=== PATIENT | male | born 1965 | race Caucasian/White ===

== ENCOUNTER → 2016-12-31 | Outpatient (CLI) | payer BC | LOC: BMCIMAGING 13:01 | PROVIDERS: ATTEND Internal Medicine | DX: R05 Cough (principal); R50.9 Fever, unspecified; J98.4 Other disorders of lung ==

== ENCOUNTER 2017-08-02 19:56 | Emergency (ER) | payer BC ==
[2017-08-02 20:06] VITALS: TEMP 98.6
--- NOTE | 2017-08-02 20:07 | CPEKG ---
Heart Rate: 67 RR Interval: 896 P-R Interval: 140 QRSD Interval: 84 QT Interval: 364 QTC Interval: 385 P [place]: 26 QRS [place]: 5 T Wave [place]: 14 EKG Severity - NORMAL ECG - EKG Impression: SINUS RHYTHM Electronically Signed By: Jazz Buchanan 02-Aug-2017 22:17:56
[2017-08-02] MEDS ORDERED: NS 500 ML IV ONE (20:08)
--- NOTE | 2017-08-02 20:16 | EDPHY ---
H & P Time Seen by Provider: 08/02/17 20:07 HPI/ROS: CHIEF COMPLAINT: Chest pain HISTORY OF PRESENT ILLNESS: This patient is a healthy 52 y/o male arriving at the request of his primary care ski guide, Dr. Connolly, for evaluation of chest pain. 4 days ago, while travelling in [place], the patient woke diaphoretic with left-sided and substernal chest pain. He visited the emergency department there and had a negative workup including EKG, chest x-ray, and labs. He returned home, and his chest pain has persisted. The chest pain is a dull persistent ache in the left side of his chest. Associated with intermittent fever and unusual fatigue. Yesterday, the emergency department in [place] called to notify him of an abnormal CXR finding and recommended followup CT. He denies cough or cold symptoms including rhinorrhea, congestion, or sore throat. No SOB, pain or swelling in his legs. Patient's family history positive for CAD, father had his first NM at age 49. His last stress test was 3 years ago. The patient takes a statin for hyperlipidemia. REVIEW OF SYSTEMS: A 10 point review of systems was performed and is negative with the exception of the elements mentioned in the history of present illness. Past Medical/Surgical History: 1. Hyperlipidemia 2. Bronchitis and pneumonia (2017) Social History: . at bedside. Nonsmoker. Moderate alcohol use. PCP Dr. Connolly. Smoking Status: Never smoked Physical Exam: General Appearance: Alert, pleasant Eyes: Pupils equal and round, no conjunctival pallor or injection ENT, Mouth: Mucous membranes moist Neck: Normal inspection Respiratory: Lungs are clear to auscultation Cardiovascular: Regular rate and rhythm Gastrointestinal: Abdomen is soft and non-tender Neurological: A&O, nonfocal, normal gait Skin: Warm and dry, no rash Extremities: Nontender, no pedal edema Psychiatric: Mood and affect normal Constitutional: Initial Vital Signs Temperature (C) 37 C 08/02/17 19:59 Heart Rate 83 08/02/17 19:59 Respiratory Rate 16 08/02/17 19:59 Blood Pressure 111/73 08/02/17 19:59 O2 Sat (%) 97 08/02/17 19:59 O2 Delivery Mode Room Air Allergies/Adverse Reactions: No Known Allergies Allergy (Unverified 04/01/10 19:56) Home Medications: Medication Instructions Recorded SIMVASTATIN 08/02/17 Medical Decision Making - Diagnostics EKG Interpretation: EKG interpreted by me reveals normal sinus rhythm, rate 67, no ST/T changes. Interpretation: normal EKG Imaging Results: CTA chest per radiologist: multiple jim lesions, concerning for multiple myeloma vs mets. No PE or pneumonia. Imaging: Discussed imaging studies w/ electric appliance installer Radiologist ED Course/Re-evaluation: 52 y/o male presents with five day history of chest pain. IV established. EKG reveals no evidence of ischemia. Doubt ACS, given atypical and prolong sx. Plan for CTA chest. D-dimer and troponin negative. 21:[address] Alvarez, radiologist. CT shows multiple osseous lesions suspicious for metastasis or myeloma. No abnormal lung findings noted. 21:[address] Connolly. Discussed CT results. He will follow up with the patient on Saturday. 21:40 Discussed results with patient. Left anterior chest pain correlates to 5th rib lesion. No evidence for alternative etiology for chest pain. Plan to d/ c home in good condition. F/u and return precautions discussed. He has been provided with a copy of the CTA report. Differential Diagnosis: includes though not limited to ACS, PE, PTX, pneumonia - Data Points Laboratory Results: Laboratory Results 08/02/17 20:10 08/02/17 20:10 Medications Given: Discontinued Medications Sodium Chloride (Ns) 500 mls @ 0 mls/hr IV EDNOW ONE; Wide Open PRN Reason: Protocol Stop: 08/02/17 20:09 Last Admin: 08/02/17 20:26 Dose: 500 mls Departure - Departure Disposition: Home, Routine, Self-Care Clinical Impression: Lytic bone lesions on xray Chest pain Qualifiers: Chest pain type: other chest pain Qualified Code(s): R07.89 - Other chest pain ; R07.8 - Other chest pain Condition: Good Instructions: Chest Pain (ED) Additional Instructions: The CT scan shows jim lesions of the ribs. This is causing your discomfort. You will need to follow-up with Dr. Connolly to figure out the etiology of these lesions. I spoke with Dr. Connolly this evening, and he will follow up with you Saturday. Your lungs look normal on the CT scan. Referrals: Jose G Connolly MD [Primary Care Provider] - As per Instructions (Call on Saturday to make an appointment.) Report Scribed for: Jazz Buchanan Report Scribed by: Heather Leslie Date of Report: 08/02/17 Time of Report: 20:17 Physician Review and Approval Statement: 08/02/17 20:17 Portions of this note were transcribed by a expert medical writer. I personally performed a history, physical exam, medical decision making, and confirmed accuracy of information the transcribed note.
[2017-08-02] MEDS ORDERED: IOPAMIDOL (ISOVUE 370) 100 ML BTL IV ONE (20:19)
[2017-08-02 20:27] VITALS: PULSE 78
[2017-08-02 20:27] LABS: ANION GAP 13 mEq/L (8-16); CALCIUM 9.7 mg/dL (8.5-10.4); CARBON DIOXIDE 20 mEq/l (22-31); CHLORIDE 103 mEq/L (97-110); CREATININE 1.2 mg/dL (0.7-1.3); GLOMERULAR FILTRATION RATE > 60; GLUCOSE 110 mg/dL (70-100); POTASSIUM 4.1 mEq/L (3.5-5.2); SODIUM 136 mEq/L (134-144)
[2017-08-02 20:38] LABS: TROPONIN I < 0.012 ng/mL (0.000-0.034)
[2017-08-02 20:45] LABS: ADD MORPH? NO; ADD SCAN? YES; FRAGMENT RBC FLAG 0 (0-99); HEMOGLOBIN 14.2 g/dL (13.7-17.5); LEFT SHIFT FLG 0 (0-99); LIPEMIA HEMOLYSIS FLAG 90 (0-99); MEAN CELL HEMOGLOBIN 29.4 pg (27.9-34.1); MEAN CELL HEMOGLOBIN CONCENTR. 33.8 g/dL (32.4-36.7); MEAN PLATELET VOLUME 9.6 fL (8.7-11.7); PLATELET CLUMPS FLAG 0 (0-99); PLATELET COUNT 250 10^3/uL (150-400); RED BLOOD CELL COUNT 4.83 10^6/uL (4.40-6.38); RED CELL DISTRIBUTION WIDTH 13.2 % (11.5-15.2)
[2017-08-02 20:46] LABS: ATYPICAL LYMPHOCYTE FLAG 290 (0-99)
[2017-08-02 21:01] LABS: ADD DIFF? YES; SCAN POSITIVE
[2017-08-02 21:06] LABS: PLATELET ESTIMATE ADEQUATE (ADEQ)
[2017-08-02 21:48] VITALS: BP 119/77; RESP 16; O2SAT 96
== END 2017-08-02 21:47 | disposition home or self-care (01) ==
DX: R07.89 Other chest pain (principal); M89.9 Disorder of bone, unspecified; E86.9 Volume depletion, unspecified
CPT/HCPCS: 82947-QW; Q9967

== ENCOUNTER 2017-10-04 22:35 | Inpatient (IN) | payer BC ==
[2017-10-04] MEDS ORDERED: ALBUTEROL 3 ML DEYVIAL IH ONE (23:12)
--- NOTE | 2017-10-04 23:12 | EDPHY ---
H & P Time Seen by Provider: 10/04/17 22:47 HPI/ROS: CHIEF COMPLAINT: Shortness of breath, weakness HISTORY OF PRESENT ILLNESS: 52-year-old male presents to the emergency department by private vehicle with his . Patient has a history of multiple myeloma. He is currently undergoing chemotherapy. He was recently traveling in [place] and over last 24 hr or so he has had weakness, body aches, feeling feverish and fatigued. He is feeling increasingly short of breath. He went to [facility] today and tested positive for influenza B. he started on Tamiflu tonight. When he arrived home, the patient noticed that he was wheezing and was having a hard time breathing. He was advised to come to the emergency department for evaluation. No flu shot. He typically does not require supplemental oxygen. REVIEW OF SYSTEMS: Constitutional: Fevers, chills Eyes: No double or blurry vision. ENT: No sore throat. Respiratory: Cough, shortness of breath Cardiac: No chest pain. Gastrointestinal: No abdominal pain, vomiting or diarrhea. Genitourinary: No dysuria. Musculoskeletal: No neck or back pain. Skin: No rashes. Neurological: headache. Past Medical/Surgical History: Multiple myeloma currently undergoing chemotherapy Social History: Smoking Status: Never smoked Physical Exam: General Appearance: Alert, no distress. Temperature 38.5 degrees orally, heart rate 90, respirations 16, blood pressure 129/74, initially 89% on room air. With 2 L he is 94%. Eyes: Pupils equal and round. Extraocular motions are all intact. ENT: Mouth: Mucous membranes moist. Respiratory: Expiratory wheezing. No rales. No respiratory distress. Cardiovascular: Regular rate and rhythm. Gastrointestinal: Abdomen is soft and nontender, no masses, no rebound or guarding, bowel sounds normal. Neurological: Alert and oriented x 3, cranial nerves II through XII grossly intact Skin: Warm and dry, no rashes. Musculoskeletal: Nontender to palpate along the cervical, thoracic or lumbar spine. Neck is supple. Extremities: Full range of motion and no peripheral edema. Psychiatric: Patient is oriented X 3, there is no agitation. Constitutional: Initial Vital Signs Temperature (C) 37.0 C 10/04/17 22:44 Heart Rate 90 10/04/17 22:44 Respiratory Rate 16 10/04/17 22:44 Blood Pressure 129/74 H 10/04/17 22:44 O2 Sat (%) 94 10/04/17 22:44 O2 Delivery Mode Room Air O2 (L/minute) 2 Allergies/Adverse Reactions: No Known Allergies Allergy (Unverified 10/04/17 22:43) Home Medications: Medication Instructions Recorded Acyclovir [Zovirax 400 mg (*)] 400 mg PO DAILY 10/04/17 Bortezomib [Velcade Sc Conc] 0 mg SC FR 10/04/17 Daratumumab [Darzalex] 500 mg IV TU 10/04/17 Dexamethasone [Decadron 4 MG (*)] 20 mg PO WE 10/04/17 Ergocalciferol (Vitamin D2) 50,000 unit PO TU 10/04/17 [Vitamin D2] LORazepam [Ativan (*)] 1 mg PO HS PRN 10/04/17 Lenalidomide [Revlimid] 25 mg PO DAILY 10/04/17 Oseltamivir Phosphate [Tamiflu 75 75 mg PO BID 10/04/17 mg (*)] Zolpidem Tartrate [Ambien 5MG (*)] 10 mg PO HS PRN 10/04/17 Aspirin [Aspirin 81mg (*)] 81 mg PO DAILY 10/05/17 Montelukast Sodium [Singulair 10 10 mg PO 10/05/17 mg (*)] Ondansetron [Ondansetron Odt] 4 mg PO BID PRN 10/05/17 Sulfamethoxazole/Trimethoprim 1 tab PO DAILY 10/05/17 [Sulfamethoxazole-Tmp Ss Tablet] Medical Decision Making - Diagnostics Imaging: Discussed imaging studies w/ rn outpatient surgery Radiologist, I viewed and interpreted images myself ED Course/Re-evaluation: 52-year-old male with a history of multiple myeloma presents with history of positive influenza B who already took a dose of Tamiflu this evening presents with shortness of breath and wheezing. Patient was given albuterol nebulizer x2. He was feeling a bit better. Chest x-ray revealed room likely right lower lobe pneumonia. This is likely community-acquired pneumonia. He will be started on IV Zithromax and IV ceftriaxone. The case was discussed with Dr. Suhas Argueta , secondary supervising physician, who did not directly evaluate the patient but agrees with treatment plan. Differential Diagnosis: Including but not limited to bronchitis, pneumonia, sepsis, influenza, viral upper respiratory infection - Data Points Laboratory Results: Laboratory Results 10/04/17 23:30 10/04/17 23:30 Medications Given: Acetaminophen (Tylenol) 650 mg PO Q4HRS PRN PRN Reason: Pain, Mild/Fever, Can Take PO Stop: 04/03/18 00:21 Last Admin: 10/05/17 02:01 Dose: 650 mg Acyclovir (Acyclovir) 400 mg PO DAILY DESTINY Stop: 11/04/17 14:14 Last Admin: 10/05/17 15:17 Dose: 400 mg Aspirin (Aspirin) 81 mg PO DAILY DESTINY Stop: 04/03/18 14:14 Last Admin: 10/05/17 15:17 Dose: 81 mg Enoxaparin Sodium (Lovenox) 40 mg SC DAILY DESTINY Stop: 04/03/18 08:59 Last Admin: 10/05/17 10:01 Dose: 40 mg Sodium Chloride (Ns) 1,000 mls @ 100 mls/hr IV CONT DESTINY Stop: 04/03/18 00:29 Last Admin: 10/05/17 12:30 Dose: 1,000 mls Miscellaneous Medication (Lenalidomide [Revlimid]) 25 mg PO DAILY DESTINY Stop: 04/03/18 14:14 Last Admin: 10/05/17 15:45 Dose: 25 mg Oseltamivir Phosphate (Tamiflu) 75 mg PO BID DESTINY Stop: 11/04/17 14:14 Last Admin: 10/05/17 15:44 Dose: 75 mg Trimethoprim/Sulfamethoxazole (Sulfamethoxazole-Tmp Ss Tablet) 1 ea PO DAILY DESTINY PRN Reason: Protocol Stop: 11/04/17 14:14 Last Admin: 10/05/17 15:44 Dose: 1 ea Discontinued Medications Albuterol (Proventil Neb) 3 ml IH EDNOW ONE Stop: 10/04/17 23:13 Last Admin: 10/04/17 23:27 Dose: 3 ml Albuterol (Proventil Neb) 3 ml IH EDNOW ONE Stop: 10/05/17 00:01 Last Admin: 10/05/17 00:01 Dose: 3 ml Azithromycin 500 mg/ Dextrose 255 mls @ 255 mls/hr IV EDNOW ONE PRN Reason: Protocol Stop: 10/05/17 00:55 Last Admin: 10/05/17 01:44 Dose: Not Given Ceftriaxone Sodium 1 gm/ (Sterile Water) 10 mls @ 150 mls/hr IV EDNOW ONE PRN Reason: Protocol Stop: 10/04/17 23:59 Last Admin: 10/05/17 03:25 Dose: Not Given Azithromycin 500 mg/ Sodium (Chloride) 255 mls @ 255 mls/hr IV EDNOW ONE PRN Reason: Protocol Stop: 10/05/17 02:14 Last Admin: 10/05/17 01:16 Dose: 255 mls Ceftriaxone Sodium/Dextrose (Rocephin 1 Gm (Premix)) 50 mls @ 750 mls/hr IV EDNOW DESTINY PRN Reason: Protocol Stop: 11/04/17 01:14 Last Admin: 10/05/17 01:16 Dose: 50 mls Departure - Departure Disposition: [facility] Inpatient Acute Clinical Impression: Influenza Dyspnea Qualifiers: Dyspnea type: unspecified Qualified Code(s): R06.00 - Dyspnea, unspecified Pneumonia Qualifiers: Pneumonia type: due to unspecified organism Laterality: right Lung location: lower lobe of lung Qualified Code(s): J18.1 - Lobar pneumonia, unspecified organism Condition: Fair
[2017-10-04 23:35] LABS: PLATELET COUNT 142 10^3/uL (150-400)
[2017-10-04] MEDS ORDERED: cefTRIAXone 1 GM in STERILE WATER INJ 10 ML IV ONE (23:56)
[2017-10-04] MEDS ORDERED: AZITHROMYCIN IV 500 MG in D5W 250 ML IV ONE (23:56)
[2017-10-04] MEDS ORDERED: ALBUTEROL 3 ML DEYVIAL ONE (23:57)
[2017-10-05] MEDS ORDERED: ALBUTEROL 3 ML DEYVIAL IH ONE
[2017-10-05] MEDS ORDERED: HYDROCODONE/APAP 5/325 TAB PO PRN (00:22)
[2017-10-05] MEDS ORDERED: ALBUTEROL 3 ML DEYVIAL IH PRN (00:22)
[2017-10-05] MEDS ORDERED: ONDANSETRON 4 MG/2 ML VIAL IVP PRN (00:22)
[2017-10-05] MEDS ORDERED: AZITHROMYCIN IV 500 MG in NS 250 ML IV ONE (01:15)
[2017-10-05] MEDS: NS 1,000 ML IV SCH ×3 (02:01→22:00)
[2017-10-05] MEDS: ACETAMINOPHEN 325 MG TAB PO PRN ×2 (02:01→21:56)
--- NOTE | 2017-10-05 02:53 | GHP ---
[f rep st] HISTORY AND PHYSICAL DATE OF ADMISSION: 10/05/2017 SOURCE: Patient able to provide most of the history. He is a bit fatigued. His is at bedside and supplements history. Case discussed with ED provider as well. EMR reviewed. CHIEF COMPLAINT: Shortness of breath. HISTORY OF PRESENT ILLNESS: This is a very pleasant 52-year-old gentleman with past medical history significant for recently diagnosed multiple myeloma in July, started on Velcade and Revlimid, and also undergoing experimental chemotherapy at [facility], who presents to the emergency department today with complaints of worsening dyspnea and wheezing. The patient is undergoing a sec ond round of chemotherapy. Yesterday, he did receive his Velcade and experimental chemotherapy dosin g. Additionally, day prior, patient began to feel increasingly fatigued with diffuse muscle aches, s ubjective fever, generalized weakness, and sore throat. Patient also had a cough. After his infusio n, he was evaluated at [facility] and diagnosed with the flu. The patient has had recent travel to [place] for work and returned just a few days ago. Patient did not receive his flu vaccine this season. He was given Tamiflu and took a single dose. However, whe n patient returned home, he went to lay down, and his observed that he was having significantly increased work of breathing and audible wheezing, and so the patient presented to [facility] for further alexey luation. In the emergency department, patient was noted to be hypoxic into the high 80s on room air. He also had a fever of 38.5. The patient was given nebulizer treatment with improvement in his symptoms. Af ter discussion, patient acknowledged that he does have a history of childhood asthma, but had not had any issues since his youth. He does not smoke. REVIEW OF SYSTEMS: GENERAL: Positive for fevers, chills, sweats. ENT: Positive for rhinorrhea, so re throat. EYES: No acute change in vision or ocular pain. CV: No chest pain, palpitations. RESP IRATORY: Cough (nonproductive), dyspnea, and wheezing as noted above per HPI. GI: No nausea, vomit ing, diarrhea. : No dysuria or hematuria. MUSCULOSKELETAL: Diffuse muscle aching. No specific joint pains. NEUROLOGIC: Headache and history of neuropathy with his chemotherapy regimen. Remaind er of review of systems negative except as noted above. ALLERGIES: No known drug allergies. HOME MEDICATIONS: Med rec not yet reconciled, but briefly, patient on vitamin D, Velcade, Tamiflu st atus post 1 dose, simvastatin, Revlimid, lorazepam, dexamethasone, Velcade, Celebrex, Bactrim DS, Amb ien, acyclovir, and experimental chemotherapy agent. PAST MEDICAL HISTORY: Significant for multiple myeloma with lytic lesions, was diagnosed in July . The patient was started on first cycle of chemotherapy at the beginning of August, hyperlipidemia , history of childhood asthma. PAST SURGICAL HISTORY: Significant for vasectomy, rhinoplasty. FAMILY HISTORY: Patient denies any history of hematogenous malignancy, but reports that there are va rious other types of cancers in the family. SOCIAL HISTORY: Patient is . He does not smoke. He drinks only occasionally. He does utili ze CBD oils to assist with sleep and nausea p.r.n. CODE STATUS: Full. PHYSICAL EXAMINATION: VITAL SIGNS: Upon arrival to the emergency department, blood pressure 129/74, heart rate 92, O2 saturation 08/28/2015, respiratory rate 16, O2 saturation 94% on room air, tempera ture 37.0, increased to 38.1. GENERAL: Patient without any acute distress. He is lying quite still on the gurney. He does appear acutely ill but nontoxic at this time. He does appear fatigued and f alls asleep intermittently during interview. is at bedside. HEAD: Normocephalic atraumatic. EYES: Extraocular muscles grossly intact. The patient does fall asleep multiple times during the in [facility]. No apparent scleral icterus conjunctival injection. ENT: Mucous membranes appear dry. No nasal discharge. CV: Regular rate and rhythm. Slightly distant heart sounds. No murmurs, rubs, o r gallops appreciated. RESPIRATORY: Patient with diffuse wheezing on both sides. The patient also with decreased air movement diffusely and diffuse crackles bilaterally. Patient without any signific ant increased work of breathing except with movement. ABDOMEN: Slightly distended, nontender. Posi tive bowel sounds. No rebound or guarding or masses appreciated. EXTREMITIES: Patient without any cyanosis, clubbing, or edema appreciated. 2+ pedal pulses. NEURO: Grossly nonfocal. No facial cinthia oping. Again, patient does fall asleep intermittently during the interview. He did take Ambien prio r to arrival in the hospital. The patient is able to move all extremities. PSYCH: Patient is somnol ent but interactive, asks appropriate questions. LABORATORY STUDIES: WBCs 6.52, H and H 17.3, 40.2, MCV of 88.9, platelet count is 142, neutrophil pe rcent 76.7. No bands. Sodium is 132, potassium 4.1, chloride 100, CO2 is 22, anion gap 10, BUN 17, creatinine is 1.1 GFR greater than 60, glucose 98, calcium 8.6; specimen is hemolyzed. Blood culture s x2 are pending. Chest x-ray: Image report reviewed myself, showing decreased lung volumes with peribronchial thicken ing and streaky basilar opacities without pneumothorax or pleural effusion. Heart and pulmonary vasc ulature are normal. Old healed rib fractures are present. Mild compression fracture at T4 appears s table. ASSESSMENT AND PLAN: A very pleasant 52-year-old gentleman with history of multiple myeloma, undergo ing chemotherapy and immunotherapy, who presents to the emergency department now with some progressiv e respiratory symptoms related to flu B, to now include wheezing and noted to be hypoxic. 1. Hypoxia with acute bronchitis in setting of acute flu B infection. The patient received a single dose of Tamiflu which will plan to continue during his stay. He will be placed on respiratory preca utions. Patient's O2 sats have improved with use of nebulizer treatments. Patient does report histo ry of childhood asthma and continues to have diffuse wheezing. 2. Bibasilar streaky opacities. Patient with increased risk factors for pneumonia including history of lung disease, his immunosuppression with chemotherapy. He does not have a leukocytosis, but does have fever. Will cover with IV antibiotics and continue azithromycin and Rocephin at this time. Jamie camejo without any recent hospitalizations. 3. Asthma exacerbation. Patient is already on dexamethasone. We will continue with nebulizer treat ments p.r.n. 4. Multiple myeloma, status post chemotherapy infusion yesterday. Will monitor CBCs. 5. Immunocompromised status. Plan as above. 6. Hyponatremia likely secondary to hypovolemia in setting of acute illness and dehydration. 7. Thrombocytopenia, minimally decreased, likely related to patient's history of multiple myeloma, c hemotherapy or even the flu. Baseline unknown. 8. Hyperlipidemia. Continue statin when patient's status improves. 9. Insomnia. Patient did take an Ambien prior to arrival and is quite somnolent, falls asleep inter mittently, but remains very cooperative and pleasant. 10. Fluid, electrolyte, nutrition. Patient will be given IV fluids. Electrolytes will be monitored and replaced as needed. Diet: Regular as tolerated. 11. Prophylaxis. SCDs and Lovenox. Will need to monitor his CBC closely. 12. Code status. DISPOSITION: Patient admitted to observation at this time on the medical floor and oncology unit if available. /[id number]/MODL
[2017-10-05 04:31] LABS: PLATELET COUNT 125 10^3/uL (150-400)
[2017-10-05] MEDS: ENOXAPARIN 40 MG/0.4 ML SYR SC SCH (10:01)
[2017-10-05] MEDS ORDERED: ZOLPIDEM TARTRATE 5 MG TAB PO PRN (14:13)
[2017-10-05] MEDS ORDERED: LORazepam 0.5 MG TAB PO PRN (14:13)
[2017-10-05] MEDS: ASPIRIN 81 MG CHEWABLE TAB PO SCH (15:17)
[2017-10-05] MEDS: ACYCLOVIR 400 MG TAB PO SCH (15:17)
[2017-10-05] MEDS: SULFAMETHOX/TMP 400/80 MG 1 TAB PO SCH (15:44)
[2017-10-05] MEDS: OSELTAMIVIR PHOSPHATE 75 MG CAP PO SCH ×2 (15:44→20:00)
[2017-10-05] MEDS: Lenalidomide [Revlimid] 25 MG PO SCH (15:45)
--- NOTE | 2017-10-05 16:51 | ASMTCMCOM ---
CM Note CM Note Notes: Anticipate dc home with support of spouse when medically stable. CM available if needs/changes. Date Signed: 10/05/2017 04:49 PM Electronically Signed By:Michelle Duarte RN
--- NOTE | 2017-10-05 17:27 | HOSPPROG ---
Hospitalist Progress Note Assessment/Plan: AHRF 2/2 Influenza +/- PNA - Afebrile, nl WBC (though up from his baseline of 4) . Continue Tamiflu, nebs. No wheezing appreciated today so will defer steroids , but continue his usual dexamethasone, which is only dosed on Saturday. Unclear if bacterial PNA presents, PCT slightly elevated at 0.19. Will continue Ceftriaxone/Azithromycin. Requiring 2 LPM O2, wean as able. 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 I returned the call of a WARP KNITTING MACHINE OPERATOR from that service and she did not answer. I left her a message. Will continue Revlimid, Acyclovir, and Bactrim. Hyponatremia - improved with NS, follow. Thrombocytopenia - likely 2/2 chemo, >100 Immunocompromised DVT PPLX - Lovenox Full code Dispo - change to inpt for ongoing hypoxemia and management of influenza / PNA Subjective: Pt feels like he wants to go home. Unhappy that I did not round on him until 3 pm (he is stable and was admitted by a physician after midnight today). Denies CP or SOB. Had some wheezing last night which is improved. No fevers. Objective: Vital Signs Temp Pulse Resp BP Pulse Ox 36.8 C 85 19 121/73 H 89 L 10/05/17 16:07 10/05/17 16:07 10/05/17 16:07 10/05/17 16:07 10/05/17 16:07 Laboratory Results 10/05/17 04:10 10/05/17 04:10 10/04/17 10/05/17 10/06/17 05:59 05:59 05:59 Intake Total 830 Balance 830 - Physical Exam Constitutional: no apparent distress Eyes: PERRL Ears, Nose, Mouth, Throat: moist mucous membranes Cardiovascular: regular rate and rhythym Respiratory: no respiratory distress, inspiratory crackles, other (no expiratory wheezes) Gastrointestinal: normoactive bowel sounds, soft, non-tender abdomen Skin: warm Musculoskeletal: full muscle strength Neurologic: AAOx3 Psychiatric: interacting appropriately ICD10 Worksheet Patient Problems: Problems Problem Status Onset Dyspnea Acute Influenza Acute Pneumonia Acute Chest pain Acute Lytic bone lesions on xray Acute
--- NOTE | 2017-10-05 18:12 | PDMN ---
Medical Necessity Medical necessity: C/M review: Patient meets INPT crtieria under [id number] Pneumonia: Acute and persistent hypoxemic respiratory failure secondary to influenza, possible pneumonia, CXR showed possible infiltrate RML, hyponatremia , Na 132,134, Ca 8.6, 8.3, Proclacitonin 0.19, thrombocytopenia, 89% RA sat 10/05 16:07 PM, requiring ongoing IV Azithramycin QD, IV Ceftriaxone QD, IV fluids, pulse oximetry, supplemental O2, comorbid multiple myeloma on current clinical trail chemotherapy, patient immunocompromised. MD anticipates > 2 MN LOS for ongoing med nec for eval and TX of above.
[2017-10-06] MEDS ORDERED: cefTRIAXone 1 GM in STERILE WATER INJ 10 ML IV SCH (01:00)
[2017-10-06] MEDS ORDERED: AZITHROMYCIN IV 250 MG in NS 250 ML IV SCH (01:00)
[2017-10-06] MEDS: ACETAMINOPHEN 325 MG TAB PO PRN (03:05)
[2017-10-06] MEDS: OSELTAMIVIR PHOSPHATE 75 MG CAP PO SCH (08:52)
[2017-10-06] MEDS: ASPIRIN 81 MG CHEWABLE TAB PO SCH (08:52)
[2017-10-06] MEDS: Lenalidomide [Revlimid] 25 MG PO SCH (08:52)
[2017-10-06] MEDS: SULFAMETHOX/TMP 400/80 MG 1 TAB PO SCH (08:52)
[2017-10-06] MEDS: ACYCLOVIR 400 MG TAB PO SCH (08:52)
[2017-10-06] MEDS: ENOXAPARIN 40 MG/0.4 ML SYR SC SCH (08:56)
[2017-10-06] MEDS ORDERED: ATORVASTATIN CALCIUM 20 MG TAB PO SCH (10:15)
[2017-10-06] MEDS ORDERED: IOPAMIDOL (ISOVUE 370) 100 ML BTL IV ONE (13:17)
[2017-10-06 15:28] VITALS: BP 115/69; PULSE 75; RESP 17; TEMP 97.5; O2SAT 91
[2017-10-08] MEDS ORDERED: MONTELUKAST SODIUM 10 MG TAB PO SCH (14:13)
[2017-10-08] MEDS ORDERED: ERGOCALCIFEROL 50,000 I.UNIT CAP PO SCH (14:13)
[2017-10-08] MEDS ORDERED: DEXAMETHASONE 4 MG TAB PO SCH (14:13)
--- NOTE | 2017-10-16 20:51 | GDS ---
[f rep st] DISCHARGE SUMMARY DISCHARGE DIAGNOSES: 1. Acute hypoxemic respiratory failure secondary to influenza B. 2. Multiple myeloma. 3. Hyponatremia, resolved. 4. Thrombocytopenia, likely secondary to chemotherapy. 5. Immunocompromised state. HISTORY: For details, please see the history and physical dated October 05, 2017. In brief, the jennifer camejo is a 52-year-old male history of multiple myeloma who followed at the [facility] and currently undergoing experimental chemotherapy, who presents to the emergency department with cough, shortness of breath, and fever. He was diagnosed with influenza A and possible pneumonia, and was admitted to the hospital for further management. HOSPITAL COURSE: The patient admitted to the Medical/Surgical unit. He initially required supplemen butch oxygen, though was weaned off this by the time of discharge. He was treated with Tamiflu and fernanda l complete a total of 10 doses. He was covered with ceftriaxone and azithromycin for possible pneumo michael component. Procalcitonin was slightly elevated and I opted to complete a 7 day treatment course of antibiotics. He had an elevated D-dimer and a CTA was performed which was negative for pulmonary embolism. The patient was weaned off oxygen on the day of discharge, saturating 91% on room air. Ox ygen has been improved. He was stable for discharge home with close outpatient followup at the [facility]. DISPOSITION: Patient is discharged home in stable condition. FOLLOWUP: 1. Patient is to follow up with the [facility]. 2. Jose G Connolly, primary care. DISCHARGE MEDICATIONS: Please see [facility] for completed outpatient medication list. New medication s on discharge include: Cefpodoxime 200 mg p.o. twice daily #10, no refills; azithromycin 250 mg p.o . daily #2, no refills; albuterol inhaler q.4 hours p.r.n. #1, no refills; and Tylenol 650 mg p.o. q. 4 hours p.r.n. /[id number]/MODL
== END 2017-10-06 16:58 | disposition home or self-care (01) | DRG 193 ==
LOC: F1N 10-05 01:29 → OBSVTOIN 10-05 17:28
PROVIDERS: ADMIT Family Medicine; ATTEND Hospitalist
DX: J10.1 Influenza due to other identified influenza virus with other respiratory manifestations (principal); J96.01 Acute respiratory failure with hypoxia; J45.901 Unspecified asthma with (acute) exacerbation; C90.00 Multiple myeloma not having achieved remission; E87.1 Hypo-osmolality and hyponatremia; D69.59 Other secondary thrombocytopenia; T45.1X5A Adverse effect of antineoplastic and immunosuppressive drugs, initial encounter; J20.9 Acute bronchitis, unspecified; E78.5 Hyperlipidemia, unspecified; E86.0 Dehydration; G47.00 Insomnia, unspecified
CPT/HCPCS: J0456; J0696; J1650; J7613; Q9967

== ENCOUNTER 2019-01-21 19:12 | Observation (INO) | payer BC ==
[2019-01-21] MEDS ORDERED: ONDANSETRON 4 MG/2 ML VIAL IVP ONE (19:25)
[2019-01-21] MEDS ORDERED: fentaNYL 100 MCG/2 ML INJ IVP ONE (19:25)
--- NOTE | 2019-01-21 19:27 | EDPHY ---
H & P Time Seen by Provider: 01/21/19 19:19 HPI/ROS: CHIEF COMPLAINT: Severe right-sided abdominal pain HISTORY OF PRESENT ILLNESS: 53-year-old man had severe sudden onset right- sided abdominal pain at 6:45 p.m. At his house. He just finished using the bathroom and presents with severe pain. Radiates a little bit to his right testicle and not positional. Not better or worse with anything. Associated with nausea but no vomiting. He was feeling relatively well prior to the onset of this pain. REVIEW OF SYSTEMS: Eye: no change in vision ENT: no sore throat Cardiac: no chest pain or syncope Pulmonary: no cough or SOB Abdomen: HPI no diarrhea Musculoskeletal: HPI Skin: no rash Neuro: No weakness or numbness in extremities Constitutional: no fever : no urinary symptoms A comprehensive 10 point review of systems is otherwise negative aside from elements mentioned in the history of present illness. PAST MEDICAL HISTORY: Includes multiple myeloma, lower leg surgery, high cholesterol Social history: Nonsmoker 36.3 General Appearance: Alert and conversant, cooperative. Eyes: No scleral icterus. ENT, Mouth: Normal mucous membranes. Respiratory: Normal respiratory effort, breath sounds equal, lungs are clear to auscultation. Cardiovascular: Regular rate and rhythm. Normal pulses in both feet. Gastrointestinal: Abdomen is soft and non tender. No pulsatile mass and no hernia, no rebound or guarding. Normal male . Neurological: Alert, face symmetric, normal motor and sensory in extremities. Skin: Warm and dry, no rashes. Musculoskeletal: No peripheral edema. Psychiatric: Not agitated. Emergency Department course/MDM: Patient appears restless and uncomfortable. Fentanyl 100 and Zofran 4, CT abdomen pelvis to evaluate for renal colic discussed and consented. 2021: Patient received 1 mg IV Dilaudid, results discussed, still is uncomfortable with 5-6/10 pain. Toradol 15 mg IV, and lidocaine 100mg IV. Plan for disposition based on pain control. 2032: Pain now increasing to 7/10, will treat with additional 1 mg IV Dilaudid in addition to above, admission for pain control. Smoking Status: Never smoked Constitutional: Initial Vital Signs Heart Rate 57 L 01/21/19 19:14 Respiratory Rate 18 01/21/19 19:14 Blood Pressure 157/101 H 01/21/19 19:14 O2 Sat (%) 100 01/21/19 19:14 O2 Delivery Mode Room Air Allergies/Adverse Reactions: Iodinated Contrast- Oral and IV Dye Allergy (Verified 01/21/19 19:17) iodine Allergy (Verified 01/21/19 19:17) Home Medications: Medication Instructions Recorded Acyclovir [Zovirax 400 mg (*)] 400 mg PO DAILY 10/04/17 Bortezomib [Velcade Sc Conc] 0 mg SC FR 10/04/17 Daratumumab [Darzalex] 500 mg IV 10/04/17 Dexamethasone [Decadron 4 MG (*)] 20 mg PO 10/04/17 Ergocalciferol (Vitamin D2) 50,000 unit PO 10/04/17 [Vitamin D2] LORazepam [Ativan (*)] 1 mg PO HS PRN 10/04/17 Lenalidomide [Revlimid] 25 mg PO DAILY 10/04/17 Oseltamivir Phosphate [Tamiflu 75 75 mg PO BID 10/04/17 mg (*)] Zolpidem Tartrate [Ambien 5MG (*)] 10 mg PO HS PRN 10/04/17 Aspirin [Aspirin 81mg (*)] 81 mg PO DAILY 10/05/17 Montelukast Sodium [Singulair 10 10 mg PO 10/05/17 mg (*)] Ondansetron [Ondansetron Odt] 4 mg PO BID PRN 10/05/17 Sulfamethoxazole/Trimethoprim 1 tab PO DAILY 10/05/17 [Sulfamethoxazole-Tmp Ss Tablet] Acetaminophen [Tylenol 325mg (*)] 650 mg PO Q4HRS PRN tab 10/06/17 Albuterol Sulfate [Proair Hfa] 8.5 gm IH Q4H PRN #1 hfa.aer.ad 10/06/17 Atorvastatin Calcium [Lipitor 20 20 mg PO DAILY 10/06/17 mg (*)] Azithromycin 250 mg PO DAILY #2 tablet 10/06/17 Cefpodoxime Proxetil [Vantin] 200 mg PO BID #10 tab 10/06/17 oxyCODONE/APAP 5/325 [Percocet] 1 - 2 tab PO Q4-6PRN PRN #11 tab 01/21/19 Medical Decision Making - Diagnostics Imaging Results: Imaging Impressions Abdomen/Pelvis CT 01/21/19 19:25 Impression: Mild right hydroureteronephrosis secondary to a 2 x 2 x 3 mm stone which appears to reside within the posterior right urinary bladder along the inside of the ureterovesical junction. Attention: This CT examination is specifically designed to evaluate patients who are clinically suspected of having acute obstructive uropathy. This examination does not use radiographic contrast, and as such, provides only a limited evaluation of the abdomen, pelvis, and retroperitoneum. If there is further clinical suspicion for pathological conditions other than obstructive uropathy, a complete CT evaluation of the abdomen and pelvis utilizing intravenous, oral, and rectal contrast should be considered. Findings were conveyed to BLESSING PIERCE MD at 20:11, on 01/21/2019 using a [employer] secure text messaging system. Imaging: Discussed imaging studies w/ call person Radiologist Differential Diagnosis: Differential diagnosis considered for flank pain including but not limited to musculoskeletal causes, kidney stone, pyelonephritis, shingles, and intra- abdominal causes such as diverticulitis and appendicitis. Consult/Admit Bed Type: Dr. Ross 2033 - Data Points Laboratory Results: Laboratory Results 01/21/19 19:14 01/21/19 19:14 01/21/19 01/21/19 19:14 19:14 WBC 5.14 10^3/uL 10^3/uL (3.80-9.50) RBC 5.21 10^6/uL 10^6/uL (4.40-6.38) Hgb 15.4 g/dL g/dL (13.7-17.5) Hct 46.8 % % (40.0-51.0) MCV 89.8 fL fL (81.5-99.8) MCH 29.6 pg pg (27.9-34.1) MCHC 32.9 g/dL g/dL (32.4-36.7) RDW 14.7 % % (11.5-15.2) Plt Count 171 10^3/uL 10^3/uL (150-400) MPV 9.0 fL fL (8.7-11.7) Neut % (Auto) 43.3 % % (39.3-74.2) Lymph % (Auto) 38.9 % % (15.0-45.0) [place] % (Auto) 13.0 % % (4.5-13.0) Eos % (Auto) 2.7 % % (0.6-7.6) Baso % (Auto) 1.9 % H % (0.3-1.7) Nucleat RBC Rel Count 0.0 % % (0.0-0.2) Absolute Neuts (auto) 2.22 10^3/uL 10^3/uL (1.70-6.50) Absolute Lymphs (auto) 2.00 10^3/uL 10^3/uL (1.00-3.00) Absolute Monos (auto) 0.67 10^3/uL 10^3/uL (0.30-0.80) Absolute Eos (auto) 0.14 10^3/uL 10^3/uL (0.03-0.40) Absolute Basos (auto) 0.10 10^3/uL 10^3/uL (0.02-0.10) Absolute Nucleated RBC 0.00 10^3/uL 10^3/uL (0-0.01) Immature Gran % 0.2 % % (0.0-1.1) Immature Gran # 0.01 10^3/uL 10^3/uL (0.00-0.10) Sodium 138 mEq/L mEq/L (135-145) Potassium 3.7 mEq/L mEq/L (3.5-5.2) Chloride 104 mEq/L mEq/L (97-110) Carbon Dioxide 19 mEq/l L mEq/l (22-31) Anion Gap 15 mEq/L H mEq/L (6-14) BUN 20 mg/dL mg/dL (7-23) Creatinine 1.2 mg/dL mg/dL (0.7-1.3) Estimated GFR > 60 Glucose 98 mg/dL mg/dL (70-100) Calcium 10.3 mg/dL mg/dL (8.5-10.4) Medications Given: Discontinued Medications Fentanyl (Sublimaze) 100 mcg IVP EDNOW ONE Stop: 01/21/19 19:26 Last Admin: 01/21/19 19:31 Dose: 100 mcg Hydromorphone HCl (Dilaudid) 1 mg IVP EDNOW ONE Stop: 01/21/19 19:58 Last Admin: 01/21/19 20:02 Dose: 1 mg Hydromorphone HCl (Dilaudid) 1 mg IVP EDNOW ONE Stop: 01/21/19 20:33 Last Admin: 01/21/19 20:36 Dose: Not Given Hydromorphone HCl (Dilaudid) 1 mg IVP EDNOW ONE Stop: 01/21/19 20:33 Last Admin: 01/21/19 20:36 Dose: 1 mg Lidocaine HCl 100 mg/ Sodium (Chloride) 110 mls @ 600 mls/hr IV EDNOW ONE Stop: 01/21/19 20:33 Last Admin: 01/21/19 20:38 Dose: 110 mls Sodium Chloride (Ns) 1,000 mls @ 3,000 mls/hr IV EDNOW ONE Stop: 01/21/19 20:42 Last Admin: 01/21/19 20:35 Dose: 1,000 mls Ketorolac Tromethamine (Toradol) 15 mg IVP EDNOW ONE Stop: 01/21/19 20:24 Last Admin: 01/21/19 20:35 Dose: 15 mg Ondansetron HCl (Zofran) 4 mg IVP EDNOW ONE Stop: 01/21/19 19:26 Last Admin: 01/21/19 19:31 Dose: 4 mg Oxycodone/Acetaminophen (Percocet 5/325) 1 tab PO EDNOW ONE Stop: 01/21/19 20:31 Last Admin: 01/21/19 20:32 Dose: Not Given Departure - Departure Disposition: [facility] Inpatient Acute Clinical Impression: Renal colic on right side Condition: Good Instructions: Renal Colic (ED) Additional Instructions: 2 x 3 mm kidney stone just above the bladder on the right side. Drink plenty of fluids. Oral ibuprofen 600 mg every 8 hr for the next 3 days. Strain urine and bring any stone that you catch to the [facility] urologist. Return for worsening or severe pain, fever, pain not controlled by medication at home. Referrals: Jose G Connolly MD [Primary Care Provider] - As per Instructions Heather Alicea MD [Medical Doctor] - 2-3 days, if not improved Prescriptions: oxyCODONE/APAP 5/325 [Percocet] 1 - 2 tab PO Q4-6PRN PRN #11 tab PRN Reason: Pain
[2019-01-21 19:35] LABS: PLATELET COUNT 171 10^3/uL (150-400)
[2019-01-21] MEDS ORDERED: HYDROmorphONE/DILAUDID 2 MG/ML INJ IVP ONE ×3 (19:57→20:32)
[2019-01-21] MEDS ORDERED: LIDOCAINE 1% 100 MG in NS 100 ML IV ONE (20:23)
[2019-01-21] MEDS ORDERED: NS 1,000 ML IV ONE (20:23)
[2019-01-21] MEDS ORDERED: KETOROLAC 15 MG/1 ML SDV IVP ONE (20:23)
[2019-01-21] MEDS ORDERED: OXYCODONE/APAP 5/325 TAB PO ONE (20:30)
[2019-01-21] MEDS ORDERED: HYDROmorphONE/DILAUDID 1 MG/ML INJ ONE (20:33)
[2019-01-21] MEDS ORDERED: ONDANSETRON 4 MG/2 ML VIAL IVP PRN (21:23)
[2019-01-21] MEDS ORDERED: ACETAMINOPHEN 325 MG TAB PO PRN (21:23)
[2019-01-21] MEDS ORDERED: ONDANSETRON DISINTEGRATING 4 MG TAB PO PRN (21:23)
[2019-01-21] MEDS ORDERED: HYDROmorphONE/DILAUDID 1 MG/ML INJ IVP PRN (21:25)
[2019-01-21] MEDS ORDERED: HYDROCODONE/APAP 5/325 TAB PO PRN (21:25)
[2019-01-21] MEDS ORDERED: oxyCODONE IR 5 MG TAB PO PRN (21:25)
--- NOTE | 2019-01-21 21:31 | PDGENHP ---
History and Physical - Chief Complaint Acute right-sided abdominal pain - History of Present Illness 53 y/o male w/hx of multiple myeloma diagnosed in July 2017 and hyperlipidemia presents to the ED w/acute right-sided abdominal pain that started at 6:45pm tonight. Described as RLQ 8/10 pain w/radiation to right flank/back and down right testicle. He is nauseous, no vomiting. Denies CP, palpitations, SOB, diarrhea. He is being admitted for further work-up, treatment and monitoring. History Information - Allergies/Home Medication List Allergies/Adverse Reactions: Iodinated Contrast- Oral and IV Dye Allergy (Verified 01/21/19 19:17) iodine Allergy (Verified 01/21/19 19:17) Home Medications: Acyclovir [Zovirax 400 mg (*)] 400 mg PO DAILY 10/04/17 [Last Taken 10/04/17] Bortezomib [Velcade Sc Conc] 0 mg SC TUFR 10/04/17 [Last Taken 10/04/17] Daratumumab [Darzalex] 500 mg IV TU 10/04/17 [Last Taken 10/01/17] Dexamethasone [Decadron 4 MG (*)] 20 mg PO WE 10/04/17 [Last Taken 10/02/17] Ergocalciferol (Vitamin D2) [Vitamin D2] 50,000 unit PO TU 10/04/17 [Last Taken 10/01/17] LORazepam [Ativan (*)] 1 mg PO HS PRN 10/04/17 [Last Taken 10/04/17] Lenalidomide [Revlimid] 25 mg PO DAILY 10/04/17 [Last Taken 10/04/17] Oseltamivir Phosphate [Tamiflu 75 mg (*)] 75 mg PO BID 10/04/17 [Last Taken 05/13 21:00] Zolpidem Tartrate [Ambien 5MG (*)] 10 mg PO HS PRN 10/04/17 [Last Taken 10/04/17 ] Aspirin [Aspirin 81mg (*)] 81 mg PO DAILY 10/05/17 [Last Taken 10/04/17] Montelukast Sodium [Singulair 10 mg (*)] 10 mg PO TUWE 10/05/17 [Last Taken 03/12] Ondansetron [Ondansetron Odt] 4 mg PO BID PRN 10/05/17 [Last Taken Unknown] Sulfamethoxazole/Trimethoprim [Sulfamethoxazole-Tmp Ss Tablet] 1 tab PO DAILY [Last Taken 10/04/17] Atorvastatin Calcium [Lipitor 20 mg (*)] 20 mg PO DAILY 10/06/17 [Last Taken 05/13] I have personally reviewed and updated: family history, medical history, social history, surgical history Past Medical History: Multiple myeloma - Past Medical History hyperlipidemia - Surgical History Additional surgical history: Vasectomy. Rhinoplasty. Bone marrow transplant ( 2018) - Family History Positive for: non-pertinent - Social History Smoking Status: Never smoked Alcohol Use: Occasionally (1-2 glasses of wine/night) Drug Use: None Additional social history: . Employed as a [employer] and [employer] Review of Systems Review of Systems: ROS: 10pt was reviewed & negative except for what was stated in HPI & below Physical Exam Physical Exam: Lab data and imaging were reviewed. Case discussed w/admitting physician, Dr. Farhan Ross. WBC: 5.14 H/H: 15.4/46.8 Plt count: 171 Na: 138 K: 3.7 Cl: 104 Co2: 19 BUN/Cr: 20/1.2 Abdominal/pelvis CT: Mild right hydroureteronephrosis secondary to a 2 x 2 x 3 mm stone which appears to reside within the posterior right urinary bladder along the inside of the UVJ. Temp Pulse Resp BP Pulse Ox 36.4 C 72 20 124/79 H 93 01/21/19 21:12 01/21/19 21:12 01/21/19 21:12 01/21/19 21:12 01/21/19 21:13 O2 (L/minute) 2 Constitutional: no apparent distress, other (Appeared "loopy" or under the influence of medication given to him in ED; not lethargic, he is alert and conversational) Eyes: PERRL, anicteric sclera, EOMI Ears, Nose, Mouth, Throat: moist mucous membranes Cardiovascular: regular rate and rhythym, no murmur, rub, or gallop, No edema Peripheral Pulses: 2+: dorsalis-pedis (R), dorsalis-pedis (L) Respiratory: no respiratory distress, no rales or rhonchi, clear to auscultation Gastrointestinal: tenderness (RLQ), other (Hypoactive bowel sounds. Negative CVAT) Genitourinary: no bladder fullness, no bladder tenderness Skin: warm, normal color, no rashes or abrasions, no fluctuance, no induration, No mottled Musculoskeletal: full muscle strength, no muscle tenderness, normal joint ROM, no joint effusions Neurologic: AAOx3, sensation intact bilaterally, CN II-XII Intact Psychiatric: interacting appropriately, not anxious, not encephalopathic, thought process linear Lymph, Heme, Immunologic: no cervical LAD, no supraclavicular LAD Lab Data & Imaging Review 01/21/19 19:14 01/21/19 19:14 WBC 5.14 10^3/uL (3.80-9.50) 01/21/19 19:14 RBC 5.21 10^6/uL (4.40-6.38) 01/21/19 19:14 Hgb 15.4 g/dL (13.7-17.5) 01/21/19 19:14 Hct 46.8 % (40.0-51.0) 01/21/19 19:14 MCV 89.8 fL (81.5-99.8) 01/21/19 19:14 MCH 29.6 pg (27.9-34.1) 01/21/19 19:14 MCHC 32.9 g/dL (32.4-36.7) 01/21/19 19:14 RDW 14.7 % (11.5-15.2) 01/21/19 19:14 Plt Count 171 10^3/uL (150-400) 01/21/19 19:14 MPV 9.0 fL (8.7-11.7) 01/21/19 19:14 Neut % (Auto) 43.3 % (39.3-74.2) 01/21/19 19:14 Lymph % (Auto) 38.9 % (15.0-45.0) 01/21/19 19:14 [place] % (Auto) 13.0 % (4.5-13.0) 01/21/19 19:14 Eos % (Auto) 2.7 % (0.6-7.6) 01/21/19 19:14 Baso % (Auto) 1.9 % (0.3-1.7) H 01/21/19 19:14 Nucleat RBC Rel Count 0.0 % (0.0-0.2) 01/21/19 19:14 Absolute Neuts (auto) 2.22 10^3/uL (1.70-6.50) 01/21/19 19:14 Absolute Lymphs (auto) 2.00 10^3/uL (1.00-3.00) 01/21/19 19:14 Absolute Monos (auto) 0.67 10^3/uL (0.30-0.80) 01/21/19 19:14 Absolute Eos (auto) 0.14 10^3/uL (0.03-0.40) 01/21/19 19:14 Absolute Basos (auto) 0.10 10^3/uL (0.02-0.10) 01/21/19 19:14 Absolute Nucleated RBC 0.00 10^3/uL (0-0.01) 01/21/19 19:14 Immature Gran % 0.2 % (0.0-1.1) 01/21/19 19:14 Immature Gran # 0.01 10^3/uL (0.00-0.10) 01/21/19 19:14 Sodium 138 mEq/L (135-145) 01/21/19 19:14 Potassium 3.7 mEq/L (3.5-5.2) 01/21/19 19:14 Chloride 104 mEq/L (97-110) 01/21/19 19:14 Carbon Dioxide 19 mEq/l (22-31) L 01/21/19 19:14 Anion Gap 15 mEq/L (6-14) H 01/21/19 19:14 BUN 20 mg/dL (7-23) 01/21/19 19:14 Creatinine 1.2 mg/dL (0.7-1.3) 01/21/19 19:14 Estimated GFR > 60 01/21/19 19:14 Glucose 98 mg/dL (70-100) 01/21/19 19:14 Calcium 10.3 mg/dL (8.5-10.4) 01/21/19 19:14 Assessment & Plan Assessment: 53 y/o male w/hx of multiple myeloma and HLD presents w/acute right sided abdominal pain, subsequently on imaging w/ a small right UVJ renal stone. He was to be d/c'ed from ED but because of his intractable pain, he will be admitted into the hospital. Vital signs are the following: BP 144/94, pulse 80, resp 22, temp 36.3, 100% RA. #Right sided renal stone -No hx of renal stones -UA pending -Urine strain -Received 1L NS in ED; cont IVF x 2 bags overnight -Creatinine a little bit elevated compared to his baseline of 1.0-1.1. Rechecking creatinine in AM after IVF. -Pain management PO/IVP PRN -Cont pulse ox monitoring #Multiple myeloma -He is followed by oncologist Dr. German Villanueva from [facility] -Recent f/u 01/12/19 w/mention of being in very good partial remission and enrolled on [place] clinical trial of VRD +/-daratumumab -On maintenance portion w/daratumumab every other month and lenalidomide daily days 1-28 -D/t frequent URIs, holding off on IVIG and to cont acyclovir BID. Plan of starting post-transplant immunizations 01/2019. #Immunocompromised status -See above Cont home medications once reconcile by pharmacy. Diet: Regular Code: Full VTE ppx: SCDs Dispo: Admit to obs
--- NOTE | 2019-01-21 21:43 | HOSPPROG ---
Hospitalist Progress Note Assessment/Plan: I have personally seen and evaluated Mr. Philip Guajardo. I agree with the assessment and plan as outlined by BEAN VINER, Daphne Lopez, in a separate note. Objective: Vital Signs Temp Pulse Resp BP Pulse Ox 36.4 C 72 20 124/79 H 93 01/21/19 21:12 01/21/19 21:12 01/21/19 21:12 01/21/19 21:12 01/21/19 21:13 01/20/19 01/21/19 01/22/19 05:59 05:59 05:59 Intake Total 1000 Balance 1000 ICD10 Worksheet Patient Problems: Problems Problem Status Onset Renal colic on right side Acute Chest pain Acute Dyspnea Acute Influenza Acute Lytic bone lesions on xray Acute Pneumonia Acute
[2019-01-21] MEDS ORDERED: LORazepam 0.5 MG TAB PO PRN (21:59)
[2019-01-21] MEDS ORDERED: MONTELUKAST SODIUM 10 MG TAB PO SCH (22:00)
[2019-01-21] MEDS ORDERED: Lenalidomide [Revlimid] 10 MG PO SCH (22:00)
[2019-01-21] MEDS: NS 1,000 ML IV SCH (22:01)
[2019-01-21] MEDS ORDERED: NORTRIPTYLINE HCL 50 MG CAP PO SCH (22:15)
[2019-01-21] MEDS ORDERED: ALBUTEROL 60 PUFFS/8 GM MDI IH PRN (22:15)
[2019-01-21] MEDS: GABAPENTIN 300 MG CAP PO SCH (23:16)
[2019-01-21] MEDS: TAMSULOSIN HCL 0.4 MG CAP PO SCH (23:16)
[2019-01-22] MEDS: NS 1,000 ML IV SCH (04:34)
[2019-01-22] MEDS: GABAPENTIN 300 MG CAP PO SCH (08:54)
[2019-01-22] MEDS: TAMSULOSIN HCL 0.4 MG CAP PO SCH (08:54)
[2019-01-22] MEDS ORDERED: MULTIVITAMINS 1 EACH TAB PO SCH (09:00)
[2019-01-22] MEDS ORDERED: ASPIRIN 81 MG CHEWABLE TAB PO SCH (09:00)
[2019-01-22] MEDS ORDERED: ATORVASTATIN CALCIUM 10 MG TAB PO SCH (09:00)
[2019-01-22] MEDS ORDERED: ACYCLOVIR 400 MG TAB PO SCH (09:00)
[2019-01-22] MEDS ORDERED: CHOLECALCIFEROL VIT D3 1,000 UNITS TAB PO SCH (09:00)
[2019-01-22] MEDS ORDERED: Lenalidomide [Revlimid] 10 MG PO SCH (09:30)
[2019-01-22 11:38] VITALS: BP 101/73
--- NOTE | 2019-01-22 13:39 | ASDISCHSUM ---
Discharge Information Plan Status:Home with No Needs Medically Cleared to Leave: Discharge Date: CM D/C Disposition:Home, Routine, Self-Care ADT D/C Disposition:Home, Routine, Self-Care Projected Discharge Date: Transportation at D/C: Discharge Delay Reason: Follow-Up Date: Discharge Slot: Final Diagnosis: Placement Information Patient Contact Information Contact Name:BARBARA Relationship:Caio Address: Work Phone: City: [place] Phone: [facility] Code: Email: Financial Information Financial Class:BCOP Primary Plan Desc: OUT OF STATE [facility] Primary Plan Number:[id number] Secondary Plan Desc: Secondary Plan Number: Assessment Information LACE LACE Comorbidities - select Answers: Other Notes: HLD all that apply # of Emergency department Answers: 1-2 visits in the last 6 months Score: 2 Date Signed: 01/22/2019 01:37 PM Electronically Signed By:Sandi Jimenez Intervention Information
--- NOTE | 2019-01-22 18:44 | GDS ---
[f rep st] DISCHARGE SUMMARY DISCHARGE DIAGNOSES: 1. Nephrolithiasis with evidence of obstructive pattern. 2. Hydroureteronephrosis secondary to above, resolved. 3. History of multiple myeloma. 4. Immunocompromised state. HISTORY: For details, please see history and physical dated January 21, 2019. In brief, the patient is a 53-year-old male with history of multiple myeloma who is chronically immunosuppressed, presented to the emergency department with right flank and abdominal pain. CT imaging revealed a 2 x 3 mm kidney stone just inside the bladder at the ureterovesical junction. This contributed to mild right hydrou reteronephrosis. He was admitted to the hospital for further management. HOSPITAL COURSE: Patient was admitted to the med/surg unit. He received pain control with Toradol, Dilaudid, and oxycodone. He was started on Flomax. His creatinine did bump to 1.4 the following mor michelle. However, his pain significantly improved, and he had nearly zero pain on the day of discharge. Repeat ultrasound was performed which showed no evidence of hydronephrosis. The 3 mm stone was fou nd to be layering dependently, suggesting it was no longer causing obstruction at the ureterovesical junction. This is likely to pass without further intervention as it has now cleared the ureter and U VJ. Repeat creatinine showed this had trended down to 1.2. Patient wishes to discharge home with ou tpatient pain control. I recommend he strain his urine, and if he does catch the stone, he can submi t this to his primary care or urologist at [facility] for stone analysis. On day of discharge, patient is hemodynamically stable with blood pressure 101/73, heart rate 67, res piratory rate 16. He is 96% on room air. DISPOSITION: Patient discharged home in stable condition. FOLLOWUP: 1. Dr. Jose G Connolly, primary care. 2. Dr. Heather Alicea at [facility] in 2 to 3 days if ongoing symptoms occur. DISCHARGE MEDICATIONS: Please see [facility] for completed outpatient medication list. There are no n ew medications on discharge. The patient has pain medication available at home if needed. /[id number]/MODL
[2019-01-22] MEDS ORDERED: ZOLPIDEM TARTRATE 5 MG TAB PO SCH (21:00)
[2019-02-09] MEDS ORDERED: DEXAMETHASONE 4 MG TAB PO SCH (22:00)
== END 2019-01-22 13:35 | disposition home or self-care (01) ==
LOC: F1N 21:47
PROVIDERS: ADMIT Internal Medicine; ATTEND Hospitalist
DX: N20.0 Calculus of kidney (principal); C90.01 Multiple myeloma in remission; E78.5 Hyperlipidemia, unspecified; Z94.81 Bone marrow transplant status; Z79.899 Other long term (current) drug therapy; E86.9 Volume depletion, unspecified
CPT/HCPCS: 74176; 76770; 96361; 96374; 96375; 96376; 99285; G0378; J1170; J1885; J2405; J3010